=== PATIENT | female | born 1955 | race Asian ===

== ENCOUNTER → 2017-04-14 | Outpatient (REF) ==
--- NOTE | 2017-04-15 02:23 | REP ---
Clinical: Pain and disability. Technique: AP, lateral, coned down views of the lumbosacral spine. Comparison: None. Findings: Advanced chronic changes at the L5-S1 level secondary to chronic bilateral spondylolysis. Findings include approximately 13 mm spondylolisthesis, osteophytosis, endplate sclerosis/heterogeneity and disc space narrowing. Associated canal stenosis cannot be excluded. Remainder of the examination appears relatively normal. Impression: Chronic advanced spondylolysis and spondylolisthesis with associated degenerative changes the L5-S1 level. Signed by Kendrick Ball MD 04/15/2017 02:14 A
== END ==
LOC: M SMT 14:52
PROVIDERS: ATTEND Internal Medicine
DX: Z02.71 Encounter for disability determination (principal); M43.17 Spondylolisthesis, lumbosacral region